=== PATIENT | female | born 1985 | race African-American/Black ===

== ENCOUNTER 2023-03-07 22:46 | Emergency (ER) | payer SELFPAY ==
[2023-03-07] MEDS ORDERED: HYDROCODONE/APAP 5/325 MG TAB ONE (23:39)
[2023-03-07] MEDS ORDERED: IBUPROFEN 400 MG TAB ONE (23:39)
[2023-03-07] MEDS ORDERED: TETRACAINE HCL 0.5% 4ML OPTH ONE (23:59)
[2023-03-08] MEDS ORDERED: FLUORESCEIN SODIUM 1 MG/WRAP ONE (00:28)
--- NOTE | 2023-03-08 00:34 | ER ---
Nurse's Notes [facility] Name: Maile German Age: 37 yrs Sex: Female : 1985 Arrival Date: 03/07/2023 Time: 22:46 Bed 20 Private MD: Diagnosis: Hordeolum internum right upper eyelid Presentation: 03/07 23:12 Chief complaint: Patient states: redness, swelling, drainage to right eye. Coronavirus as6 screen: At this time, the client does not indicate any symptoms associated with coronavirus-19. Ebola Screen: No symptoms or risks identified at this time. Initial Sepsis Screen: Does the patient meet any 2 criteria? No. Patient's initial sepsis screen is negative. Does the patient have a suspected source of infection? No. Patient's initial sepsis screen is negative. Risk Assessment: Do you want to hurt yourself or someone else? Patient reports no desire to harm self or others. Onset of symptoms was March 05, 2023. 23:12 Method Of Arrival: Ambulatory as6 23:12 Acuity: DENA 4 as6 Historical: - Allergies: 23:14 No Known Allergies; as6 - PMHx: 23:14 None; as6 - PSHx: 23:14 section; as6 - Immunization history:: Client reports receiving the 2nd dose of the Covid vaccine. - Social history:: Smoking status: Patient reports the use of cigarette tobacco products, denies chronic smoking, but will smoke occasionally. Screenin/14 00:49 [facility] ED Fall Risk Assessment (Adult) History of falling in the last 3 months, jb4 including since admission No falls in past 3 months (0 pts) Confusion or Disorientation No (0 pts). Abuse screen: Denies threats or abuse. Nutritional screening: No deficits noted. Tuberculosis screening: No symptoms or risk factors identified. Assessment: 03/07 23:20 General: Appears in no apparent distress. uncomfortable, Behavior is calm, cooperative, jb4 appropriate for age. Pain: Complains of pain in right eye Pain does not radiate. Pain currently is 10 out of 10 on a pain scale. Neuro: Level of Consciousness is awake, alert, obeys commands, Oriented to person, place, time, situation. Cardiovascular: Patient's skin is warm and dry. Respiratory: Airway is patent Respiratory effort is even, unlabored, Respiratory pattern is regular, symmetrical. GI: No signs and/or symptoms were reported involving the gastrointestinal system. : No signs and/or symptoms were reported regarding the genitourinary system. EENT: No signs and/or symptoms were reported regarding the EENT system. Derm: Skin is intact, Skin is pink, warm \T\ dry. Musculoskeletal: Circulation, motion, and sensation intact. Range of motion: intact in all extremities. 23:20 Reassessment: Visual acuity done. Left eye is 20/30 vision. Unable to test right eye jb4 due to swelling. 03/08 00:49 Reassessment: Patient appears in no apparent distress at this time. Patient and/or jb4 family updated on plan of care and expected duration. Pain level reassessed. Patient is alert, oriented x 3, equal unlabored respirations, skin warm/dry/pink. Vital Signs: 03/07 23:12 BP 157 / 112; Pulse 68; Resp 18 S; Temp 97.9(TE); Pulse Ox 100% on R/A; Weight 81.65 kg as6 (R); Height 5 ft. 5 in. (R); Pain 7/10; 03/08 00:49 BP 148 / 94; Pulse 68; Resp 16; Pulse Ox 100% on R/A; jb4 03/07 23:12 Body Mass Index 29.95 (81.65 kg, 165.1 cm) as6 03/07 23:12 Pain Scale: Adult as6 ED Course: 03/07 22:49 Patient arrived in ED. jj6 22:52 Andrade Posey PA is PHCP. cp 22:52 Aftab Flores MD is Attending Physician. cp 23:14 Triage completed. as6 23:14 Arm band placed on. as6 23:21 Vinh Aldana, HANH is Primary Nurse. jb4 03/08 00:30 Rita Potter MD is Referral Physician. cp 00:49 Patient has correct armband on for positive identification. Bed in low position. Call jb4 light in reach. Side rails up X 1. Client placed on continuous cardiac and pulse oximetry monitoring. NIBP monitoring applied. 00:49 No provider procedures requiring assistance completed. Patient did not have IV access jb4 during this emergency room visit. Administered Medications: 03/07 23:31 Drug: HYDROcodone-acetaminophen PO 5 mg-325 mg 1 tabs Route: PO; jb4 23:31 Drug: Ibuprofen PO 800 mg Route: PO; jb4 23:31 Drug: Clindamycin PO 300 mg Route: PO; jb4 03/08 00:20 Drug: Tetracaine Ophthalmic Drops 0.5 % 1 drops {Note: Administered by ER provider..} jb4 Route: Ophthalmic; Site: right eye; 00:27 Drug: Fluorescein Ophthalmic Strip 1 strip {Note: Administered by ER provider..} Route: jb4 Ophthalmic; Site: right eye; 00:32 Drug: Gentamicin Ophthalmic Drops 0.3 % 1 drops Route: Ophthalmic; Site: right eye; jb4 Outcome: 00:34 Discharge ordered by . nancy 00:49 Discharged to home ambulatory. jb4 00:49 Condition: stable 00:49 Discharge instructions given to patient, Instructed on discharge instructions, follow up and referral plans. medication usage, Demonstrated understanding of instructions, follow-up care, medications, Prescriptions given X 3. 00:51 Patient left the ED. jb4 Signatures: Andrade Posey PA PA cp Bryson, James, RN RN jb4 Sasha Stanton jj6 Arden Gallardo, RN RN as6
--- NOTE | 2023-03-08 00:34 | EDPHYS ---
Physician Documentation [facility] Name: Maile German Age: 37 yrs Sex: Female : 1985 Arrival Date: 03/07/2023 Time: 22:46 Bed 20 Private MD: ED Physician Aftab Flores HPI: 03/07 23:20 This 37 yrs old Black Female presents to ER via Ambulatory with complaints of Eye cp Problem. 23:20 The patient is experiencing pain, to the left eye. Onset: The symptoms/episode cp began/occurred 3 day(s) ago. Duration: the symptoms are continuous. Associated signs and symptoms: Pertinent negatives: chills, ear ache, fever. Patient does not utilize any form of vision correction. Severity of symptoms: in the emergency department the symptoms are unchanged despite home interventions. Patient reports she has been applying warm compresses to right eye and using OTC eye drops. Patient reports she does not use contact lenses. Historical: - Allergies: 23:14 No Known Allergies; as6 - PMHx: 23:14 None; as6 - PSHx: 23:14 section; as6 - Immunization history:: Client reports receiving the 2nd dose of the Covid vaccine. - Social history:: Smoking status: Patient reports the use of cigarette tobacco products, denies chronic smoking, but will smoke occasionally. ROS: 23:25 Constitutional: Negative for body aches, chills, fever, poor PO intake. cp 23:25 Eyes: Positive for discharge, pain, redness, swelling, visual disturbance, of the right eye, Negative for injury or acute deformity. 23:25 ENT: Negative for drainage from ear(s), ear pain, sinus congestion, sinus pain, sore cp throat, difficulty swallowing, difficulty handling secretions. 23:25 Respiratory: Negative for cough, shortness of breath, wheezing. 23:25 Skin: Negative for rash. 23:25 All other systems are negative. Exam: 23:30 Constitutional: The patient appears in no acute distress, alert, awake, non-toxic, well cp developed, well nourished, uncomfortable. 23:30 Eyes: Pupils: equal, round, and reactive to light and accomodation, Extraocular cp movements: intact throughout, Conjunctiva: normal, Corneas: abrasion, is not appreciated, foreign body, is not appreciated, a fluorescein strip employed to appreciate the findings, Lids and lashes: drainage, from the right eye, stye, right upper eye lid, mild swelling, mild erythema, tender to palpation. 23:30 ENT: External ear(s): are unremarkable, Nose: is normal, Mouth: Lips: moist, Oral mucosa: pink and intact, moist, Posterior pharynx: is normal, airway is patent, no erythema, no exudate. 23:30 Neck: ROM/movement: is normal, is supple, without pain, no range of motions limitations. 23:30 Cardiovascular: Rate: normal. 23:30 Respiratory: the patient does not display signs of respiratory distress, Respirations: normal, no use of accessory muscles, no retractions, Breath sounds: are clear throughout, no decreased breath sounds. 23:30 Skin: no rash present. Vital Signs: 23:12 BP 157 / 112; Pulse 68; Resp 18 S; Temp 97.9(TE); Pulse Ox 100% on R/A; Weight 81.65 kg as6 (R); Height 5 ft. 5 in. (R); Pain 7/10; 03/08 00:49 BP 148 / 94; Pulse 68; Resp 16; Pulse Ox 100% on R/A; jb4 03/07 23:12 Body Mass Index 29.95 (81.65 kg, 165.1 cm) as6 03/07 23:12 Pain Scale: Adult as6 MDM: 03/07 23:31 Patient medically screened. cp 03/08 00:33 Data reviewed: vital signs, nurses notes. cp 00:33 Differential diagnosis: Corneal abrasion of Foreign body in I considered the following cp discharge prescriptions or medication management in the emergency department Medications were administered in the Emergency Department. See MAR. Counseling: I had a detailed discussion with the patient and/or guardian regarding the historical points, exam findings, and any diagnostic results supporting the discharge/admit diagnosis, the need for outpatient follow up, an opthalmologist, to return to the emergency department if symptoms worsen or persist or if there are any questions or concerns that arise at home. Response to treatment: the patient's symptoms have mildly improved after treatment, and as a result, I will discharge patient. 03/07 23:15 Order name: Visual Acuity; Complete Time: 23:44 cp Administered Medications: 03/07 23:31 Drug: HYDROcodone-acetaminophen PO 5 mg-325 mg 1 tabs Route: PO; jb4 23:31 Drug: Ibuprofen PO 800 mg Route: PO; jb4 23:31 Drug: Clindamycin PO 300 mg Route: PO; jb4 03/08 00:20 Drug: Tetracaine Ophthalmic Drops 0.5 % 1 drops {Note: Administered by ER provider..} jb4 Route: Ophthalmic; Site: right eye; 00:27 Drug: Fluorescein Ophthalmic Strip 1 strip {Note: Administered by ER provider..} Route: jb4 Ophthalmic; Site: right eye; 00:32 Drug: Gentamicin Ophthalmic Drops 0.3 % 1 drops Route: Ophthalmic; Site: right eye; jb4 Disposition Summary: 03/08/23 00:34 Discharge Ordered Location: Home cp Problem: new cp Symptoms: have improved cp Condition: Stable cp Diagnosis - Hordeolum internum right upper eyelid cp Followup: cp - With: Rita Potter MD - When: 2 - 3 days - Reason: Recheck today's complaints Discharge Instructions: - Discharge Summary Sheet [facility] cp Forms: - Medication Reconciliation Form cp - Thank You Letter cp - Antibiotic Education cp - Prescription Opioid Use cp - Patient Portal Instructions cp - Leadership Thank You Letter cp - Work release form jb4 Prescriptions: - Clindamycin HCl 300 mg Oral Capsule - take 1 capsule by ORAL route every 6 hours for 10 days; 40 capsule; Refills: 0, cp Product Selection Permitted - Gentamicin 0.3 % Ophthalmic Drops - instill 1 drop by OPHTHALMIC route every 4 hours for 7 days; 1 unit; Refills: cp 0, Product Selection Permitted - Diclofenac Sodium 75 mg Oral tablet,delayed release (DR/EC) - take 1 tablet by ORAL route 2 times per day; 20 tablet; Refills: 0, Product cp Selection Permitted Addendum: 03/09/2023 02:35 Co-signature as Attending Physician, Aftab Flores MD I reviewed the patient's care r n provided by the Advanced Practice Provider and agree with the diagnosis and treatment plan. Signatures: Aftab Flores MD MD rn Page, Corey, PA PA cp Bryson, James, RN RN jb4 Arden Gallardo RN RN as6 Corrections: (The following items were deleted from the chart) 03/08 23:58 23:56 Eyes: Positive for discharge, pain, redness, swelling, visual disturbance, of the cp right eye, Negative for injury or acute deformity, cp 23:58 23:56 Constitutional: Negative for body aches, chills, fever, poor PO intake, cp cp
[2023-03-08] MEDS ORDERED: GENTAMICIN 0.3% OPTH DROP 5ML ONE (00:42)
[2023-03-08 00:56] VITALS: TEMP 97.9; O2SAT 100
[2023-03-08 00:58] VITALS: BP 148/94
== END 2023-03-08 00:51 | disposition home or self-care (01) ==
LOC: ER 22:46
DX: H00.021 Hordeolum internum right upper eyelid (principal)
CPT/HCPCS: 99283